=== PATIENT | female | born 1985 | race Hispanic/Latino ===

== ENCOUNTER 2018-09-13 15:28 | Emergency (ER) | payer OTHER ==
[2018-09-13] MEDS ORDERED: NA CHLORIDE 0.9% 1,000 ML ONE (15:55)
[2018-09-13] MEDS ORDERED: ONDANSETRON 4 MG/2 ML VIAL ONE (15:55)
[2018-09-13 16:05] LABS: Absolute Lymphocytes (CBC) 3.5 K/uL (0.7-4.9); Absolute Monocytes 0.6 K/uL (0.1-1.3); Absolute Neutrophil 6.1 K/uL (1.8-8.0); Basophils % 0.7 % (0-1.3); Eosinophils % 1.3 % (0-4.4); Hematocrit 40.9 % (36.0-45.0); Lymphocytes % 33.8 % (15.3-44.8); Monocytes % 5.9 % (3.3-12.3); RBC Red Blood Cell Count 4.81 M/uL (3.86-4.86)
[2018-09-13 16:25] LABS: BUN Blood Urea Nitrogen 9 mg/dL (7-18); Bicarbonate 29 mmol/L (21-32); Glucose Level 178 mg/dL (74-106); Potassium 3.9 mmol/L (3.5-5.1); Sodium Level 135 mmol/L (136-145)
[2018-09-13 17:09] LABS: Urine Blood NEGATIVE (NEG); Urine Glucose 2+ (NEG); Urine Protein NEGATIVE (NEG); Urine Specific Gravity 1.025 (1.005-1.030)
--- NOTE | 2018-09-13 17:17 | ER ---
Nurse's Notes [facility] Name: Marisol Dickinson Age: 33 yrs Sex: Female : 1985 Arrival Date: 09/13/2018 Time: 15:29 Bed 7 Private MD: None, None Diagnosis: Vomiting of , unspecified Presentation: 09/13 15:45 Presenting complaint: Patient states: Approx 13 weeks , c/o N/V "every time I ph eat or drink" denies abdominal pain, bleeding or discharge, hx of DM. Transition of care: patient was not received from another setting of care. Onset of symptoms was September 13, 2018. Risk Assessment: Do you want to hurt yourself or someone else? Patient reports no desire to harm self or others. Initial Sepsis Screen: Does the patient meet any 2 criteria? No. Patient's initial sepsis screen is negative. Does the patient have a suspected source of infection? No. Patient's initial sepsis screen is negative. Care prior to arrival: None. 15:45 Method Of Arrival: Ambulatory ph 15:45 Acuity: JEREMIE 3 ph REPAIRER GENERAL: 15:47 LMP 06/12/2018, Verified, EDC 03/19/2019, Gestational age from LMP: 13 weeks 2 ph days Historical: - Allergies: 15:47 No Known Allergies; ph - Home Meds: 15:47 Vitamin Oral [Active]; ph - PMHx: 15:47 Asthma; Diabetes - NIDDM; High Cholesterol; Liver disease; ph - PSHx: 15:47 Appendectomy; ph - Immunization history:: Adult Immunizations unknown. - Social history:: Smoking status: Patient/guardian denies using tobacco. - Ebola Screening: : No symptoms or risks identified at this time. Screenin:38 Abuse screen: Denies threats or abuse. Denies injuries from another. Nutritional sv screening: No deficits noted. Tuberculosis screening: No symptoms or risk factors identified. Fall Risk None identified. Assessment: 15:45 General: Appears in no apparent distress. comfortable, well developed, Behavior is sv calm, cooperative, appropriate for age. Pain: Denies pain. Neuro: Level of Consciousness is awake, alert, obeys commands, Oriented to person, place, time, situation, Moves all extremities. Full function Gait is steady. Respiratory: Respiratory effort is even, unlabored, Respiratory pattern is regular, symmetrical. GI: Abdomen is round Reports nausea, vomiting. Derm: Skin is pink, warm \\T\\ dry. 17:44 Reassessment: Patient appears in no apparent distress at this time. Patient and/or sv family updated on plan of care and expected duration. Pain level reassessed. Patient is alert, oriented x 3, equal unlabored respirations, skin warm/dry/pink. Patient states feeling better. Patient states symptoms have improved. Vital Signs: 15:47 BP 133 / 104; Pulse 95; Resp 18; Temp 97.9; Pulse Ox 99% on R/A; Weight 68.04 kg; ph Height 5 ft. 2 in. (157.48 cm); Pain 0/10; 16:23 BP 102 / 78; Pulse 81; Resp 16; Pulse Ox 99% ; sv 17:10 BP 104 / 72; Pulse 86; Resp 16; Pulse Ox 98% ; sv 15:47 Body Mass Index 27.44 (68.04 kg, 157.48 cm) ph ED Course: 15:29 Patient arrived in ED. sb2 15:29 None, None is Private Physician. sb2 15:37 Da Hughes PA is PHCP. jr8 15:37 Ryan Carpenter MD is Attending Physician. jr8 15:38 Elise Seymour RN is Primary Nurse. sv 15:38 Arm band placed on. sv 15:38 Patient has correct armband on for positive identification. Bed in low position. Door sv closed. Head of bed elevated. 15:39 Nurse Practitioner and/or Physician Death Surveys Coder to see patient. sv 15:46 Triage completed. ph 15:50 Initial lab(s) drawn, by me, sent to lab. Inserted saline lock: 20 gauge in right sv antecubital area, using aseptic technique. Blood collected. Flushed right antecubital with 5 ml normal saline. 17:44 No provider procedures requiring assistance completed. IV discontinued, intact, sv bleeding controlled, No redness/swelling at site. Pressure dressing applied. Administered Medications: 15:57 Drug: NS 0.9% 1000 ml Route: IV; Rate: 1000 ml; Site: right antecubital; sv 17:33 Follow up: Response: No adverse reaction; IV Status: Completed infusion; IV Intake: sv 1000ml 15:57 Drug: Zofran 4 mg Route: IVP; Site: right antecubital; sv 16:30 Follow up: Response: No adverse reaction sv Point of Care Testing: Blood Glucose: 15:58 Blood Glucose: 205 mg/dL; sv Ranges: Intake: 17:33 IV: 1000ml; Total: 1000ml. sv Outcome: 17:17 Discharge ordered by MD. funez 17:44 Discharged to home ambulatory. sv 17:44 Condition: stable 17:44 Discharge instructions given to patient, Instructed on discharge instructions, follow up and referral plans. medication usage, Demonstrated understanding of instructions, follow-up care, medications, Prescriptions given X 1. 17:45 Patient left the ED. sv Signatures: Elise Seymour RN RN Da Marsh PA PA jr8 Mandi Wilkerson RN RN Cindy Nicole sb2
--- NOTE | 2018-09-13 17:17 | EDPHYS ---
Physician Documentation [facility] Name: Marisol Dickinson Age: 33 yrs Sex: Female : 1985 Arrival Date: 09/13/2018 Time: 15:29 Bed 7 Private MD: None, None ED Physician Ryan Carpenter HPI: 09/13 16:55 This 33 yrs old Female presents to ER via Ambulatory with complaints of jr8 Vomiting - 13 WK PG. 16:55 The patient presents to the emergency department with nausea, vomiting. Onset: The jr8 symptoms/episode began/occurred gradually, 7 week(s) ago. Possible causes: . The symptoms are aggravated by food , The symptoms are alleviated by nothing. Associated signs and symptoms: The patient has no apparent associated signs or symptoms. Severity of symptoms: At their worst the symptoms were moderate in the emergency department the symptoms are unchanged. The patient has not experienced similar symptoms in the past. The patient has not recently seen a physician. [employer]: 15:47 LMP 06/12/2018, Verified, EDC 03/19/2019, Gestational age from LMP: 13 weeks 2 ph days Historical: - Allergies: 15:47 No Known Allergies; ph - Home Meds: 15:47 Vitamin Oral [Active]; ph - PMHx: 15:47 Asthma; Diabetes - NIDDM; High Cholesterol; Liver disease; ph - PSHx: 15:47 Appendectomy; ph - Immunization history:: Adult Immunizations unknown. - Social history:: Smoking status: Patient/guardian denies using tobacco. - Ebola Screening: : No symptoms or risks identified at this time. ROS: 16:55 Eyes: Negative for injury, pain, redness, and discharge, ENT: Negative for injury, jr8 pain, and discharge, Neck: Negative for injury, pain, and swelling, Cardiovascular: Negative for chest pain, palpitations, and edema, Respiratory: Negative for shortness of breath, cough, wheezing, and pleuritic chest pain, Back: Negative for injury and pain, MS/Extremity: Negative for injury and deformity, Skin: Negative for injury, rash, and discoloration, Neuro: Negative for headache, weakness, numbness, tingling, and seizure. 16:55 Abdomen/GI: Positive for nausea and vomiting, Negative for abdominal pain, diarrhea, abdominal cramps, abdominal distension, anorexia, dysphagia, hematemesis, black/tarry stool, rectal pain, rectal bleeding, bowel incontinence, flatulence. 16:55 : Negative for vaginal bleeding, vaginal discharge. Exam: 16:55 Eyes: Pupils equal round and reactive to light, extra-ocular motions intact. Lids and jr8 lashes normal. Conjunctiva and sclera are non-icteric and not injected. Cornea within normal limits. Periorbital areas with no swelling, redness, or edema. ENT: Nares patent. No nasal discharge, no septal abnormalities noted. Tympanic membranes are normal and external auditory canals are clear. Oropharynx with no redness, swelling, or masses, exudates, or evidence of obstruction, uvula midline. Mucous membranes moist. Neck: Trachea midline, no thyromegaly or masses palpated, and no cervical lymphadenopathy. Supple, full range of motion without nuchal rigidity, or vertebral point tenderness. No Meningismus. Cardiovascular: Regular rate and rhythm with a normal S1 and S2. No gallops, murmurs, or rubs. Normal PMI, no JVD. No pulse deficits. Respiratory: Lungs have equal breath sounds bilaterally, clear to auscultation and percussion. No rales, rhonchi or wheezes noted. No increased work of breathing, no retractions or nasal flaring. Abdomen/GI: Soft, non-tender, with normal bowel sounds. No distension or tympany. No guarding or rebound. No evidence of tenderness throughout. Back: No spinal tenderness. No costovertebral tenderness. Full range of motion. Skin: Warm, dry with normal turgor. Normal color with no rashes, no lesions, and no evidence of cellulitis. MS/ Extremity: Pulses equal, no cyanosis. Neurovascular intact. Full, normal range of motion. Neuro: Awake and alert, GCS 15, oriented to person, place, time, and situation. Cranial nerves II-XII grossly intact. Motor strength 5/5 in all extremities. Sensory grossly intact. Cerebellar exam normal. Normal gait. Vital Signs: 15:47 BP 133 / 104; Pulse 95; Resp 18; Temp 97.9; Pulse Ox 99% on R/A; Weight 68.04 kg; ph Height 5 ft. 2 in. (157.48 cm); Pain 0/10; 16:23 BP 102 / 78; Pulse 81; Resp 16; Pulse Ox 99% ; sv 17:10 BP 104 / 72; Pulse 86; Resp 16; Pulse Ox 98% ; sv 15:47 Body Mass Index 27.44 (68.04 kg, 157.48 cm) ph MDM: 15:37 Patient medically screened. jr8 16:55 Data reviewed: vital signs, nurses notes, lab test result(s), and as a result, I will jr8 discharge patient. Data interpreted: Pulse oximetry: on room air is 99 %. Interpretation: normal. Counseling: I had a detailed discussion with the patient and/or guardian regarding: the historical points, exam findings, and any diagnostic results supporting the discharge/admit diagnosis, lab results, the need for outpatient follow up, an OB/Gyne specialist, to return to the emergency department if symptoms worsen or persist or if there are any questions or concerns that arise at home. Response to treatment: the patient's symptoms have markedly improved after treatment, patient is well hydrated. 17:15 ED course: Detailed discussion with patient about close glucose control. Will need to jr8 be on insulin for . Has had a hard time with finding private OB. Referring to [facility] system for further evaluation . 09/13 15:45 Order name: CBC with Diff; Complete Time: 16:49 [facility] 09/13 15:45 Order name: Basic Metabolic Panel; Complete Time: 16:49 [facility] 09/13 15:55 Order name: Glucose, Ancillary Testing; Complete Time: 16:49 [facility] 09/13 16:21 Order name: Urine Dipstick--Ancillary (enter results); Complete Time: 17:15 09/13 16:21 Order name: Urine --Ancillary (enter results); Complete Time: 17:15 09/13 15:45 Order name: IV; Complete Time: 15:57 8 09/13 15:45 Order name: Urine Test (obtain specimen); Complete Time: 15:56 [facility] 09/13 15:45 Order name: Urine Dipstick-Ancillary (obtain specimen); Complete Time: 15:56 [facility] 09/13 15:45 Order name: Glucose Level; Complete Time: 15:47 jr8 Administered Medications: 15:57 Drug: NS 0.9% 1000 ml Route: IV; Rate: 1000 ml; Site: right antecubital; sv 17:33 Follow up: Response: No adverse reaction; IV Status: Completed infusion; IV Intake: sv 1000ml 15:57 Drug: Zofran 4 mg Route: IVP; Site: right antecubital; sv 16:30 Follow up: Response: No adverse reaction sv Point of Care Testing: Blood Glucose: 15:58 Blood Glucose: 205 mg/dL; sv Ranges: Critical Glucose Levels:Adult <50 mg/dl or >400 mg/dl <40 mg/dl or >180 mg/dl Disposition: 09/14 07:38 Co-signature as Attending Physician, Ryan Carpenter MD I agree with the assessment and kdr plan of care. Disposition: 09/13/18 17:17 Discharged to Home. Impression: Vomiting of , unspecified. - Condition is Stable. - Discharge Instructions: Hyperemesis Gravidarum, Morning Sickness, [id number], Nausea and Vomiting, Adult, First Trimester of , Second Trimester of , [id number], Heartburn During , [id number], Type 1 or Type 2 Diabetes Mellitus During , Self Care, Type 1 or Type 2 Diabetes Mellitus During , Diagnosis. - Prescriptions for Zofran 8 mg Oral Tablet - take 1 tablet by ORAL route every 12 hours As needed; 20 tablet. - Medication Reconciliation Form, Thank You Letter, Antibiotic Education, Prescription Opioid Use form. - Follow up: Private Physician; When: 2 - 3 days; Reason: Recheck today's complaints, Continuance of care, Re-evaluation by your physician. - Problem is new. - Symptoms have improved. Signatures: Dispatcher [employer] Elise Henson RN RN Ryan Lewis MD MD kdr Roszak, Josh, PA PA jr8 Mandi Wilkerson, RN RN ph Corrections: (The following items were deleted from the chart) 09/13 17:45 17:17 09/13/2018 17:17 Discharged to Home. Impression: Vomiting of , sv unspecified. Condition is Stable. Forms are Medication Reconciliation Form, Thank You Letter, Antibiotic Education, Prescription Opioid Use. Follow up: Private Physician; When: 2 - 3 days; Reason: Recheck today's complaints, Continuance of care, Re-evaluation by your physician. Problem is new. Symptoms have improved. jrBarron
== END 2018-09-13 17:45 | disposition home or self-care (01) ==
LOC: ER 15:28
DX: O21.0 Mild hyperemesis gravidarum (principal); O24.911 Unspecified diabetes mellitus in pregnancy, first trimester; Z3A.13 13 weeks gestation of pregnancy; Z79.4 Long term (current) use of insulin
CPT/HCPCS: 36415; 80048; 81003; 81025; 82962; 85025; 96361; 96374; 99284; J2405; J7030